=== PATIENT | female | born 1960 ===

== ENCOUNTER 2021-01-14 11:30 | Inpatient (IN) | payer OTHER ==
[~2021-01-14] VITALS: Ht 162.6 cm; Wt 6.8 kg
[2021-01-14] MEDS ORDERED: TYLENO PO (14:29)
[2021-01-14] MEDS ORDERED: AMBI (14:34)
[2021-01-17] MEDS ORDERED: PROAIR HFA8.5 GM (10:12)
[2021-01-17] MEDS ORDERED: FAMOTIDINE20 MG (10:12)
[2021-01-17] MEDS ORDERED: VITAMIN D3250 MCG (10:12)
[2021-01-17] MEDS ORDERED: DICLOFENAC POTA50 MG (10:12)
[2021-01-17] MEDS ORDERED: ACETAMINOPHEN325 M1 (10:13)
== END 2021-01-19 14:03 | disposition home or self-care (01) | DRG 738 ==
LOC: O/R 01-17 07:47 → SURH 01-17 11:30 → SURG-SUITE 01-17 16:39 → SURH 01-17 19:00 → SURG-SUITE 01-19 14:03
PROVIDERS: Surgery; ADMIT Obstetrics & Gynecology Gynecologic Oncology; ATTEND Obstetrics & Gynecology Gynecologic Oncology
PROC: 0UT70ZZ Resection of Bilateral Fallopian Tubes, Open Approach (ICD-10-PCS; 2021-01-17)
PROC: 07BC0ZZ Excision of Pelvis Lymphatic, Open Approach (ICD-10-PCS; 2021-01-17)
PROC: 0DBU0ZZ Excision of Omentum, Open Approach (ICD-10-PCS; 2021-01-17)
PROC: 0DTJ0ZZ Resection of Appendix, Open Approach (ICD-10-PCS; 2021-01-17)
PROC: 0DNN0ZZ Release Sigmoid Colon, Open Approach (ICD-10-PCS; 2021-01-17)
PROC: 0UT90ZZ Resection of Uterus, Open Approach (ICD-10-PCS; principal; 2021-01-17 19:00)
PROC: 0UT20ZZ Resection of Bilateral Ovaries, Open Approach (ICD-10-PCS; 2021-01-17 19:00)
DX: C56.3 Malignant neoplasm of bilateral ovaries (principal); D12.1 Benign neoplasm of appendix; N80.5 Endometriosis of intestine; N99.4 Postprocedural pelvic peritoneal adhesions; N73.6 Female pelvic peritoneal adhesions (postinfective); N72 Inflammatory disease of cervix uteri